=== PATIENT | female | born 1985 | race American Indian/Alaskan Native ===

== ENCOUNTER 2021-07-07 09:24 | Emergency (ER) | payer SELFPAY ==
--- NOTE | 2021-07-07 11:20 | Emergency Department Report ---
ED Female HPI - General Chief complaint: Urogenital-Female Stated complaint: STOMACH CRAMPS/DISCHARGE Time Seen by Provider: 07/07/21 10:51 Source: patient Mode of arrival: Ambulatory Limitations: No Limitations - History of Present Illness Initial comments: This 36-year-old female presents emergency department with a chief complaint of lower abdominal cramping, dysuria, copious clear vaginal discharge has been present over the past month. She reports she was recently from her and is unsure if she may have been exposed to an STD. She denies any associated fever, chills, night sweats, headache, dizziness, blurry vision, nausea, vomit, diarrhea, chest pain, shortness of breath, weakness or any other associated symptoms. She denies any known past medical history, current medication use and has allergies to Macrobid that caused swelling of her lips. - Related Data Previous Rx's Medication Instructions Recorded Last Taken Type DOXYCYCLINE Hyclate [Vibramycin 100 mg PO Q12HR #20 capsule 07/07/21 Unknown Rx CAP] Fluconazole [Diflucan TAB] 200 mg PO QDAY #2 tablet 07/07/21 Unknown Rx metroNIDAZOLE [Flagyl TAB] 500 mg PO Q12HR #14 tab 07/07/21 Unknown Rx Allergies Allergy/AdvReac Type Severity Reaction Status Date / Time nitrofurantoin Allergy Anaphylaxis Verified 07/07/21 10:47 [From Macrobid] ED Review of Systems ROS: Stated complaint: STOMACH CRAMPS/DISCHARGE Other details as noted in HPI Comment: All other systems reviewed and negative Constitutional: denies: chills, fever Eyes: denies: eye pain, eye discharge, vision change ENT: denies: ear pain, throat pain Respiratory: denies: cough, shortness of breath, wheezing Cardiovascular: denies: chest pain, palpitations Endocrine: no symptoms reported Gastrointestinal: abdominal pain. denies: nausea, diarrhea Genitourinary: as per HPI, dysuria, discharge. denies: urgency Musculoskeletal: denies: back pain, joint swelling, arthralgia Skin: denies: rash, lesions Neurological: denies: headache, weakness, paresthesias Psychiatric: denies: anxiety, depression Hematological/Lymphatic: denies: easy bleeding, easy bruising ED Past Medical Hx - Past Medical History Previous Medical History?: No - Surgical History Past Surgical History?: No - Medications Home Medications: Home Medications Medication Instructions Recorded Confirmed Last Taken Type DOXYCYCLINE Hyclate [Vibramycin 100 mg PO Q12HR #20 capsule 07/07/21 Unknown Rx CAP] Fluconazole [Diflucan TAB] 200 mg PO QDAY #2 tablet 07/07/21 Unknown Rx metroNIDAZOLE [Flagyl TAB] 500 mg PO Q12HR #14 tab 07/07/21 Unknown Rx ED Physical Exam - General Limitations: No Limitations General appearance: alert, in no apparent distress - Head Head exam: Present: atraumatic, normocephalic - Eye Eye exam: Present: normal appearance, PERRL, EOMI Pupils: Present: normal accommodation - ENT ENT exam: Present: normal exam, normal orophraynx, mucous membranes moist - Neck Neck exam: Present: normal inspection, full ROM. Absent: tenderness, meningismus - Respiratory Respiratory exam: Present: normal lung sounds bilaterally. Absent: respiratory distress, wheezes, rales, rhonchi, stridor - Cardiovascular Cardiovascular Exam: Present: regular rate, normal rhythm. Absent: systolic murmur, diastolic murmur, rubs, gallop - GI/Abdominal GI/Abdominal exam: Present: soft, normal bowel sounds. Absent: distended, tenderness, guarding, rebound, rigid - External exam: Present: other (Pelvic exam chaperoned by RN Caity, copious white/greenish vaginal discharge. Cervix is normal appearance. No cervical motion tenderness. No adnexal tenderness or masses.) - Extremities Exam Extremities exam: Present: normal inspection, full ROM, normal capillary refill. Absent: tenderness, calf tenderness - Back Exam Back exam: Present: normal inspection, full ROM. Absent: tenderness, CVA tenderness (R), CVA tenderness (L) - Neurological Exam Neurological exam: Present: alert, oriented X3 - Psychiatric Psychiatric exam: Present: normal affect, normal mood - Skin Skin exam: Present: warm, dry, intact, normal color. Absent: rash ED Course Vital Signs 07/07/21 10:46 Temperature 97.9 F Pulse Rate 66 Respiratory 16 Rate Blood Pressure 148/91 [Right] O2 Sat by Pulse 100 Oximetry ED Medical Decision Making - Medical Decision Making The patient's wet prep was consistent with trichomonas. She will be treated with metronidazole as an outpatient. I will also cover the patient for gonorrhea chlamydia with Rocephin 500 mg IM and azithromycin 1 g p.o. and as well as doxycycline 100 mg p.o. twice daily x10 days. Recommend following up with the health department or primary doctor to ensure her symptoms resolved. Also recommended any sexual partners to be treated and avoiding any sexual contact prior to everybody being treated and waiting at least 1 week. Recommended she follow-up the health department for further testing of any other possible sexually transmitted function exposure. She verbalized understand these instructions and all her questions were answered. - Differential Diagnosis UTI, STD, contact dermatitis Critical care attestation.: If time is entered above; I have spent that time in minutes in the direct care of this critically ill patient, excluding procedure time. ED Disposition Clinical Impression: Trichomonas vaginitis Disposition: HOME / SELF CARE / HOMELESS Is pt being admited?: No Condition: Stable Prescriptions: Fluconazole [Diflucan TAB] 200 mg PO QDAY #2 tablet metroNIDAZOLE [Flagyl TAB] 500 mg PO Q12HR #14 tab DOXYCYCLINE Hyclate [Vibramycin CAP] 100 mg PO Q12HR #20 capsule Referrals: PRIMARY CAREMD [Primary Care Provider] - 3-5 Days [facility] [Outside] - 3-5 Days [facility] [Provider Group] - 3-5 Days Time of Disposition: 13:11
[2021-07-07 12:52] LABS: HCG Qualitative,Urine Negative (Negative)
[2021-07-07] MEDS ORDERED: AZITHROMYCIN 250 MG TAB PO ONE (13:08)
[2021-07-07] MEDS ORDERED: LIDOCAINE-MPF (1%) 10 MG/1 ML VIAL 5 ML INFILTRATI ONE (13:08)
[2021-07-07 13:28] LABS: Bilirubin,Urine NEG (Negative); Blood,Urine NEG (Negative); Color,Urine Yellow (Yellow); Urobilinogen,Urine < 2.0 mg/dL (<2.0)
[2021-07-07] MEDS ORDERED: LIDOCAINE (1%) 10 MG/1 ML VIAL 20 ML MDV INFILTRATI ONE (13:45)
[2021-07-07 14:05] VITALS: BP 140/80
== END 2021-07-07 14:05 | disposition home or self-care (01) ==
LOC: ED 09:24
DX: A59.01 Trichomonal vulvovaginitis (principal)
CPT/HCPCS: 81001; 81025; 87086; 87210; 87591; 96372; 99284; J0696; J3490